=== PATIENT | female | born 1990 ===

== ENCOUNTER 2021-05-27 23:20 | Emergency (ER) | payer MEDICAID ==
[2021-05-27 23:45] VITALS: BP 192/114
[2021-05-28 00:24] LABS: Hematocrit 38.4 % (30.3-42.9); Hemoglobin 12.6 gm/dl (10.1-14.3); Mean Corpuscular HGB Conc 33 % (30-34); Mean Corpuscular Volume 86 fl (79-97); Platelet Count 452 K/mm3 (140-440); Red Blood Count 4.45 M/mm3 (3.65-5.03); Red Cell Distribution Width 14.6 % (13.2-15.2)
[2021-05-28 00:49] LABS: Blood Urea Nitrogen 12 mg/dL (7-17); Calcium 9.7 mg/dL (8.4-10.2); Hemolysis Index 4
[2021-05-28 00:56] LABS: BUN/Creatinine Ratio 24
[2021-05-28 01:04] LABS: Total Cells Counted 100
[2021-05-28 01:05] LABS: RBC Morphology Normal
--- NOTE | 2021-05-28 02:51 | Emergency Department Report ---
ED Abdominal Pain HPI - General Chief Complaint: Vaginal Bleeding Stated Complaint: ABDOMINAL PAIN Time Seen by Provider: 05/28/21 02:48 Source: patient Mode of arrival: Ambulatory Limitations: No Limitations - History of Present Illness Initial Comments: 30-year-old -Swazi female with past medical history of hypertension, cholecystectomy presents emergency department complaining of a 3 to 4-day history of dull crampy pain to the left flank region radiates across to her lower abdomen appears to be associated with her menstruation but reports no no dysuria, no fever, chills, sweats, no chest pain palpitations, no constipation, no diarrhea, no nausea, no vomiting -: Gradual Radiation: L flank Migration to: no migration Quality: aching, dull Consistency: constant Improves With: nothing Worsens With: nothing Associated Symptoms: denies: nausea, vomiting, dysuria, hematemesis - Related Data Previous Rx's Medication Instructions Recorded Last Taken Type Ketorolac [Toradol] 10 mg PO Q6H PRN #14 tablet 05/28/21 Unknown Rx Ondansetron [Zofran Odt] 4 mg PO Q8HR #20 tab.rapdis 05/28/21 Unknown Rx Allergies Allergy/AdvReac Type Severity Reaction Status Date / Time No Known Allergies Allergy Unverified 05/27/21 23:38 ED Review of Systems ROS: Stated complaint: ABDOMINAL PAIN Other details as noted in HPI Comment: All other systems reviewed and negative ED Past Medical Hx - Past Medical History Previous Medical History?: Yes Hx Hypertension: Yes - Surgical History Past Surgical History?: Yes Hx Cholecystectomy: Yes Additional Surgical History: c-sections - Medications Home Medications: Home Medications Medication Instructions Recorded Confirmed Last Taken Type Ketorolac [Toradol] 10 mg PO Q6H PRN #14 tablet 05/28/21 Unknown Rx Ondansetron [Zofran Odt] 4 mg PO Q8HR #20 tab.rapdis 05/28/21 Unknown Rx ED Physical Exam - General Limitations: No Limitations General appearance: alert, in no apparent distress - Head Head exam: Present: atraumatic, normocephalic - Eye Eye exam: Present: normal appearance - ENT ENT exam: Present: mucous membranes moist - Neck Neck exam: Present: normal inspection - Respiratory Respiratory exam: Present: normal lung sounds bilaterally. Absent: respiratory distress - Cardiovascular Cardiovascular Exam: Present: regular rate, normal rhythm. Absent: systolic murmur, diastolic murmur, rubs, gallop - GI/Abdominal GI/Abdominal exam: Present: soft, normal bowel sounds. Absent: tenderness (No tenderness with palpation to any of the quadrants or flank pain no CVA tenderness is noted. Abdomen is soft. No discoloration noted) - Extremities Exam Extremities exam: Present: normal inspection - Back Exam Back exam: Present: normal inspection - Neurological Exam Neurological exam: Present: alert, oriented X3 - Psychiatric Psychiatric exam: Present: normal affect, normal mood - Skin Skin exam: Present: warm, dry, intact, normal color. Absent: rash ED Course Vital Signs 05/27/21 23:37 Temperature 97.5 F L Pulse Rate 99 H Respiratory 17 Rate Blood Pressure 192/114 O2 Sat by Pulse 99 Oximetry ED Medical Decision Making - Lab Data Result diagrams: 05/27/21 23:50 05/27/21 23:50 Critical care attestation.: If time is entered above; I have spent that time in minutes in the direct care of this critically ill patient, excluding procedure time. ED Disposition Clinical Impression: HTN (hypertension), Dysmenorrhea Disposition: DC-01 TO HOME OR SELFCARE Is pt being admited?: No Does the pt Need Aspirin: No Condition: Stable Instructions: Hypertension (ED), Dysmenorrhea, Hypertension, Adult Prescriptions: Ketorolac [Toradol] 10 mg PO Q6H PRN #14 tablet PRN Reason: Pain Ondansetron [Zofran Odt] 4 mg PO Q8HR #20 tab.rapdis Referrals: [facility] [Provider Group] - 3-5 Days [facility] [Provider Group] - 3-5 Days
[2021-05-28 03:02] LABS: Bilirubin,Urine NEG (Negative); Blood,Urine MOD (Negative); Color,Urine Yellow (Yellow); Mucus,Urine FEW /HPF; Protein,Urine <15 mg/dL mg/dL (Negative); Urobilinogen,Urine < 2.0 mg/dL (<2.0)
== END 2021-05-28 03:50 | disposition home or self-care (01) ==
LOC: ED 23:20
DX: N94.6 Dysmenorrhea, unspecified (principal); I10 Essential (primary) hypertension; Z90.49 Acquired absence of other specified parts of digestive tract; Z98.890 Other specified postprocedural states; Z79.899 Other long term (current) drug therapy
CPT/HCPCS: 36415; 80048; 81001; 84702; 85007; 85025

== ENCOUNTER 2021-07-15 14:51 | Emergency (ER) | payer MEDICAID ==
[2021-07-15 16:06] LABS: Bacteria,Urine 1+ /HPF (Negative); Bilirubin,Urine NEG (Negative); Blood,Urine SM (Negative); Color,Urine Amber (Yellow); Mucus,Urine 1+ /HPF
[2021-07-15 16:49] LABS: Basophils # (Auto) 0.2 K/mm3 (0.0-0.1); Eosinophils # (Auto) 0.3 K/mm3 (0.0-0.4); Eosinophils % (Auto) 1.7 % (0.0-4.3); Hematocrit 39.2 % (30.3-42.9); Lymphocytes # (Auto) 4.5 K/mm3 (1.2-5.4); Lymphocytes % (Auto) 28.9 % (13.4-35.0); Mean Corpuscular HGB Conc 33 % (30-34); Mean Corpuscular Volume 85 fl (79-97); Monocytes # (Auto) 0.9 K/mm3 (0.0-0.8); Monocytes % (Auto) 5.8 % (0.0-7.3); Platelet Count 448 K/mm3 (140-440); Red Blood Count 4.61 M/mm3 (3.65-5.03); Red Cell Distribution Width 14.8 % (13.2-15.2)
[2021-07-15 16:56] LABS: HCG Qualitative,Urine Negative (Negative)
[2021-07-15 17:05] LABS: Alanine Aminotransferase 9 units/L (7-56); Albumin 4.1 g/dL (3.9-5); Blood Urea Nitrogen 12 mg/dL (7-17); Calcium 9.8 mg/dL (8.4-10.2); Hemolysis Index 8
[2021-07-15 17:16] LABS: BUN/Creatinine Ratio 24
[2021-07-15] MEDS ORDERED: KETOROLAC 30 MG/1 ML INJ IV ONE (17:25)
[2021-07-15] MEDS ORDERED: ONDANSETRON 4 MG/2 ML INJ IV ONE (17:25)
[2021-07-15] MEDS ORDERED: SODIUM CHLORIDE 0.9% 1000 ML 1,000 ML IV ONE (17:25)
--- NOTE | 2021-07-15 17:26 | Emergency Department Report ---
<MARY KENNY - Last Filed: 07/15/21 20:57> ED Abdominal Pain HPI - General Chief Complaint: Abdominal Pain Stated Complaint: RT PAIN /HEART BURN Time Seen by Provider: 07/15/21 17:06 Source: patient Mode of arrival: Ambulatory Limitations: No Limitations - History of Present Illness Initial Comments: 31 year old female presents to ED with complaints lower abdominal pain and RUQ abominal pain. Patient states that her symptoms started yesterday. She describes the pain as pressure. She also feels like the pain in her upper abdomen feels like heart burn. She states the pain has been constant. She reports associated nausea, loose stools, urinary frequency and white discharge. She states her L[facility] was may 21. She states she took a home preg test and it was negative. She denies any fever or chills. She state she is sexual active with same partner. She reports hx of C-sections in past but denies any other abd surgeries. MD Complaint: abdominal pain -: Gradual, days(s) (1) - Related Data Previous Rx's Medication Instructions Recorded Last Taken Type Ketorolac [Toradol] 10 mg PO Q6H PRN #14 tablet 05/28/21 Unknown Rx Ondansetron [Zofran Odt] 4 mg PO Q8HR #20 tab.rapdis 05/28/21 Unknown Rx Doxycycline Hyclate 100 mg PO BID 7 Days tablet. 07/15/21 Unknown Rx Naproxen 500 mg PO BID #20 tablet 07/15/21 Unknown Rx Ondansetron [Zofran Odt] 4 mg PO Q4H #20 tab.rapdis 07/15/21 Unknown Rx Allergies Allergy/AdvReac Type Severity Reaction Status Date / Time No Known Allergies Allergy Unverified 05/27/21 23:38 ED Review of Systems Comment: All other systems reviewed and negative Constitutional: denies: chills, fever Eyes: denies: eye pain, eye discharge, vision change ENT: denies: ear pain, throat pain Respiratory: denies: cough, shortness of breath, SOB with exertion, SOB at rest, wheezing Gastrointestinal: abdominal pain, nausea. denies: diarrhea, constipation, hematemesis, melena, hematochezia Genitourinary: frequency. denies: urgency, dysuria, hematuria, discharge, abnormal menses, dyspareunia Musculoskeletal: denies: back pain, joint swelling, arthralgia Skin: denies: rash, lesions, change in color, change in hair/nails, pruritus Neurological: denies: headache, weakness, numbness, paresthesias, confusion, abnormal gait, vertigo Psychiatric: denies: anxiety, depression, auditory hallucinations, visual hallucinations, homicidal thoughts, suicidal thoughts Hematological/Lymphatic: denies: easy bleeding, easy bruising, swollen glands ED Past Medical Hx - Past Medical History Previous Medical History?: Yes Hx Hypertension: Yes - Surgical History Hx Cholecystectomy: Yes Additional Surgical History: c-sections - Medications Home Medications: Home Medications Medication Instructions Recorded Confirmed Last Taken Type Ketorolac [Toradol] 10 mg PO Q6H PRN #14 tablet 05/28/21 Unknown Rx Ondansetron [Zofran Odt] 4 mg PO Q8HR #20 tab.rapdis 05/28/21 Unknown Rx Doxycycline Hyclate 100 mg PO BID 7 Days tablet. 07/15/21 Unknown Rx Naproxen 500 mg PO BID #20 tablet 07/15/21 Unknown Rx Ondansetron [Zofran Odt] 4 mg PO Q4H #20 tab.rapdis 07/15/21 Unknown Rx ED Physical Exam - General Limitations: No Limitations General appearance: alert, in no apparent distress - Head Head exam: Present: atraumatic, normocephalic, normal inspection - Eye Eye exam: Present: normal appearance, PERRL, EOMI Pupils: Present: normal accommodation - ENT ENT exam: Present: normal exam, mucous membranes moist, TM's normal bilaterally - Neck Neck exam: Present: normal inspection, full ROM - Respiratory Respiratory exam: Present: normal lung sounds bilaterally. Absent: respiratory distress, wheezes, rales - Cardiovascular Cardiovascular Exam: Present: regular rate, normal rhythm, normal heart sounds - GI/Abdominal GI/Abdominal exam: Present: soft, tenderness (TTP RUQ with mild guarding but no rebound. Diffuse ttp lower abdominal area without guarding or rebound ). Absent: distended, guarding - External exam: Present: normal external exam, other (hand driller present (Nurse)). Absent: erythema, swelling, lesions, lacerations, ecchymosis Speculum exam: Present: vaginal discharge (Moderate amount of white thick discharge ). Absent: cervical discharge, vaginal bleeding, foreign body, tissue, laceration Bi-manual exam: Present: adnexal tenderness (bilateral ). Absent: cervical motion tendernes, adnexal mass, uterine enlargement, uterine tenderness - Neurological Exam Neurological exam: Present: alert, oriented X3, CN II-XII intact, normal gait - Psychiatric Psychiatric exam: Present: normal affect, normal mood - Skin Skin exam: Present: intact ED Medical Decision Making - Lab Data Result diagrams: 07/15/21 16:16 07/15/21 16:16 - Medical Decision Making 2056: The patient's care has been transferred to and accepted by[Rachna Bermudez PA-C]. We discussed: The patient's chief complaints; labs and imaging that have been completed and those that are still pending; any treatment provided and the patient's response to treatment; any significant change in condition; the treatment plan prior to the transfer of care. The accepting provider will follow up on all pending labs and imaging and make any necessary changes to the current impression and/or treatment plan. The accepting physician/midlevel is now responsible for the patient's care and final disposition. ED Disposition Clinical Impression: Subcutaneous mass of abdominal wall Disposition: HOME / SELF CARE / HOMELESS Condition: Stable Instructions: Abdominal Pain, Adult, Abdominal Pain (ED) Additional Instructions: Take Tylenol every 4 hours as needed for pain. Take Doxycycline as directed. Take Naprosyn twice daily with food as needed for pain. Take Zofran as directed for nausea/vomiting. Rest. Drink plenty of fluids. Follow-up with Dr. Hunter, general surgeon, regarding CT results. Call tomorrow to schedule an appointment. See referral information below. Bring a copy of today's CT results with you to your follow-up appointment. Return to the emergency department immediately for new or worsening symptoms. Specifically, return to the emergency department immediately for fever, vomiting, dehydration, worsening pain, inability to use the bathroom, or any other concerns. Prescriptions: Doxycycline Hyclate 100 mg PO BID 7 Days tablet.dr Cordovaroxen 500 mg PO BID #20 tablet Ondansetron [Zofran Odt] 4 mg PO Q4H #20 tab.rapdis Referrals: MORENA HUNTER MD [Staff Physician] - 3-5 Days <RACHNA BERMUDEZ - Last Filed: 07/15/21 23:56> ED Review of Systems ROS: Stated complaint: RT PAIN /HEART BURN Other details as noted in HPI ED Course Vital Signs 07/15/21 07/15/21 07/15/21 15:05 19:51 23:14 Temperature 98.7 F 98.4 F Pulse Rate 104 H 78 79 Respiratory 18 14 12 Rate Blood Pressure 167/110 Blood Pressure 151/99 155/109 [Left] O2 Sat by Pulse 100 100 100 Oximetry ED Medical Decision Making - Lab Data Result diagrams: 07/15/21 16:16 07/15/21 16:16 - Radiology Data [facility] [address] [place] [address] Cat Scan Report Signed Patient: NICK CARSON MR#: [id number] : 1990 Acct:[id number] Age/Sex: 31 / F ADM Date: 07/15/21 Loc: ED Attending Dr: Ordering Physician: MARY KENNY Date of Service: 07/15/21 Procedure(s): CT abdomen pelvis w con Accession Number(s): [id number] cc: MARY KENNY CT ABDOMEN AND PELVIS WITH CONTRAST INDICATION / CLINICAL INFORMATION: RUQ abd pain/lower abdominal pain x1wk [id number] 100ml. TECHNIQUE: Axial CT images were obtained through the abdomen and pelvis after IV contrast. All CT scans at this location are performed using CT dose reduction for ALARA by means of automated exposure control. COMPARISON: None available. FINDINGS: LOWER CHEST: No significant abnormality. LIVER: No significant abnormality. GALLBLADDER: Cholecystectomy. BILE DUCTS: No significant abnormality. PANCREAS: No significant abnormality. SPLEEN: No significant abnormality. ADRENALS: No significant abnormality. RIGHT KIDNEY / URETER: No significant abnormality. LEFT KIDNEY / URETER: No significant abnormality. STOMACH / SMALL BOWEL: No significant abnormality. COLON: No significant abnormality. APPENDIX: No significant abnormality. PERITONEUM: No free fluid. No free air. No fluid collection. LYMPH NODES: No significant adenopathy. AORTA / ARTERIES: No significant abnormality. IVC / VEINS: No significant abnormality. URINARY BLADDER: No significant abnormality. REPRODUCTIVE ORGANS: Left adnexal cyst measuring 4.3 x 3.0 cm, likely physiologic in a premenopausal female. The uterus appears normal. The right ovary appears normal. ADDITIONAL FINDINGS: There is a solid enhancing irregular mass located in the subcutaneous tissues of the midline abdomen the low the umbilicus measuring approximately 5.0 x 3.7 cm. There are no definite findings of intraperitoneal involvement. SKELETAL SYSTEM: No significant abnormality. IMPRESSION: 1. Solid enhancing mass in the subjacent tissues of the midline lower abdomen is nonspecific. Recommend tissue biopsy. 2. Left adnexal cyst measuring 4.3 cm, likely physiologic. Signer Name: Tam Ocasio MD Signed: 07/15/2021 10:10 PM Workstation Name: [id number] Transcribed By: DB Dictated By: TAM OCASIO MD Electronically Authenticated By: TAM OCASIO MD Signed Date/Time: 07/15/212209 DD/ 03 TD/TT: - Medical Decision Making Assumed care of patient from Mary Kenny PA-C at change of shift pending CT results. On re-evaluation, patient is stable. Repeat abdominal exam is benign. CT of the abdomen/pelvis shows nonspecific solid enhancing mass in the subjacent tissues of the midline lower abdomen, tissue biopsy recommended. No clinical indication for further diagnostic work-up on an emergent basis at this time. Patient will be discharged home with appropriate analgesics and referral to general surgery for close outpatient follow-up. Patient provided with a copy of imaging results to take with her to her follow-up appointment. Patient expressed understanding and is agreeable to plan of care. Strict return precautions provided. Repeat exam is unremarkable and benign. Pain is controlled. History, exam, diagnostic testing, and current condition do not suggest worrisome pathology to warrant further testing, continued ED treatment, admission, or surgical evaluation at this point. Given the low probability of a significant medical illness, it would be more likely to result in harm than benefit to perform further testing at this stage. Discussed findings, presumptive diagnosis, need for follow-up and specific signs/symptoms that should prompt immediate return to the emergency department. Instructions were explained in detail to the patient in addition to giving written discharge information. Patient expressed understanding and was given the opportunity to ask questions, all of which were satisfactorily answered prior to discharge home. Critical care attestation.: If time is entered above; I have spent that time in minutes in the direct care of this critically ill patient, excluding procedure time. ED Disposition Is pt being admited?: No Does the pt Need Aspirin: No Time of Disposition: 22:58
[2021-07-15] MEDS ORDERED: LIDOCAINE-MPF (1%) 10 MG/1 ML VIAL 5 ML INFILTRATI ONE (17:36)
--- NOTE | 2021-07-15 21:20 | Ultrasound Report ---
ULTRASOUND ABDOMEN, LIMITED (RIGHT UPPER QUADRANT) INDICATION: RUQ pain. COMPARISON: None available. FINDINGS: Pancreas: Visualized portion shows no significant abnormality. Liver: No significant abnormality. Gallbladder: Surgically absent. Bile ducts: No significant abnormality. Common Bile Duct measures 1.7 mm. Free fluid: None. Additional Findings: None. IMPRESSION: 1. No sonographic abnormality of the right upper quadrant. Signer Name: Darius Brower MD Signed: 07/15/2021 9:16 PM Workstation Name: [id number]
--- NOTE | 2021-07-15 22:15 | Cat Scan Report ---
CT ABDOMEN AND PELVIS WITH CONTRAST INDICATION / CLINICAL INFORMATION: RUQ abd pain/lower abdominal pain x1wk [id number] 100ml. TECHNIQUE: Axial CT images were obtained through the abdomen and pelvis after IV contrast. All CT sc ans at this location are performed using CT dose reduction for ALARA by means of automated exposure c ontrol. COMPARISON: None available. FINDINGS: LOWER CHEST: No significant abnormality. LIVER: No significant abnormality. GALLBLADDER: Cholecystectomy. BILE DUCTS: No significant abnormality. PANCREAS: No significant abnormality. SPLEEN: No significant abnormality. ADRENALS: No significant abnormality. RIGHT KIDNEY / URETER: No significant abnormality. LEFT KIDNEY / URETER: No significant abnormality. STOMACH / SMALL BOWEL: No significant abnormality. COLON: No significant abnormality. APPENDIX: No significant abnormality. PERITONEUM: No free fluid. No free air. No fluid collection. LYMPH NODES: No significant adenopathy. AORTA / ARTERIES: No significant abnormality. IVC / VEINS: No significant abnormality. URINARY BLADDER: No significant abnormality. REPRODUCTIVE ORGANS: Left adnexal cyst measuring 4.3 x 3.0 cm, likely physiologic in a premenopausal female. The uterus appears normal. The right ovary appears normal. ADDITIONAL FINDINGS: There is a solid enhancing irregular mass located in the subcutaneous tissues of the midline abdomen the low the umbilicus measuring approximately 5.0 x 3.7 cm. There are no definit e findings of intraperitoneal involvement. SKELETAL SYSTEM: No significant abnormality. IMPRESSION: 1. Solid enhancing mass in the subjacent tissues of the midline lower abdomen is nonspecific. Recomme nd tissue biopsy. 2. Left adnexal cyst measuring 4.3 cm, likely physiologic. Signer Name: Tam Ocasio MD Signed: 07/15/2021 10:10 PM Workstation Name: [id number]
[2021-07-15 23:15] VITALS: BP 155/109
== END 2021-07-15 23:15 | disposition home or self-care (01) ==
LOC: ED 14:51
DX: R22.2 Localized swelling, mass and lump, trunk (principal); I10 Essential (primary) hypertension
CPT/HCPCS: 36415; 74177; 76705; 80053; 81001; 81025; 83690; 85025; 87210; 96361; 96372; 96374; 96375; 99284; J0696; J1885; J2405; J7030; Q9967